=== PATIENT | female | born 1995 | race Caucasian/White ===

== ENCOUNTER 2021-02-05 12:08 | Emergency (ER) | payer OTHER, SELFPAY ==
[2021-02-05 12:22] VITALS: BP 133/73; PULSE 88; RESP 18; TEMP 36.4; O2SAT 100
[2021-02-05 12:23] VITALS: BP 133/73; PULSE 88; RESP 18; TEMP 36.4; O2SAT 100
--- NOTE | 2021-02-05 12:31 | ED.GENADULT ---
HPI - General Adult General Chief complaint: Skin/Abscess/Foreign Body Stated complaint: lip sore/rash/spot on neck Source: patient Mode of arrival: ambulatory Limitations: no limitations History of Present Illness HPI narrative: Patient is a 25-year-old female who presents to the [facility] via POV for evaluation of a skin problem. She states she has a long history of eczema located on upper lip and has ran out of her grandson on cream. She is requesting refills today. She also reports accidentally biting her lip which is now swollen. Additionally, she has a cyst on her neck that she would like removed. 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 Tylenol provides minimal relief. Nothing worsens symptoms. Triamcinolone cream controls eczema. Related Data Home Medications Medication Instructions Recorded Confirmed etonogestrel [Nexplanon] 1 implant SUBDERMAL ONCE 02/05/21 02/05/21 fluticasone propionate [Flonase] 1 spray INTRANASAL Q12H 02/05/21 02/05/21 ketotifen fumarate [Zaditor] 1 drp EACH EYE BID PRN 02/05/21 02/05/21 loratadine [Claritin] 10 mg PO PRN PRN 02/05/21 02/05/21 Allergies Allergy/AdvReac Type Severity Reaction Status Date / Time cucumber Allergy Dry Mouth Verified 02/05/21 12:31 latex Allergy Hives Verified 02/05/21 12:31 peanut Allergy Difficulty Verified 02/05/21 12:31 Swallowing tree nut Allergy Difficulty Verified 02/05/21 12:31 Breathing Review of Systems Review of Systems: Pertinent negatives fever, chills, sweats, malaise, poor p.o. intake, change in appetite, headache, LOC, dizziness, streaking, drainage, numbness, tingling, loss of sensation, foreign body sensation, deformity, sob, chest pain, and heart palpitations/murmurs. PMFSH Past Medical History Medical History (Updated 02/05/21 @ 12:43 by Rolando Selby, CARDIOVASCULAR TECHNOLOGIST, ) Eczema Comments I have reviewed and agree with the patient's past medical, surgical, social, and family hx as documented by the RN. There is no relevant family history pertinent to the presenting complaint. Exam Narrative: GENERAL: Well-appearing, well-nourished, and in no acute distress. HEAD: Normocephalic, atraumatic. No facial swelling appreciated. EYES: PERRLA and EOMI. No evidence of erythema, swelling, or drainage. ENT: Nares clear, no rhinorrhea or epistaxis.Mucous membranes moist and pink. Uvula is midline without erythema and swelling. No evidence of obstruction, petechial rash, cobblestoning, lesions, ulcers, erythema, swelling, exudates, peritonsillar abscess, tenting, or drooling. Breath odor and voice normal. NECK: Supple. No Lymphadenopathy or nuchal rigidity appreciated. CHEST: Bilateral lung alcocer are clear to auscultation. No respiratory distress. No evidence of cough or pleuritic cp upon examination. HEART: Regular rate and rhythm. No murmur, gallop, or rub heard. EXTREMITIES: Normal range of motion. No edema. SKIN: 0.5 small nodule consistent with cyst is appreciated to anterior neck. Small contusion noted to right side of inner lower lip. Moderate eczema noted to philtrum area. Skin is warm, dry. No evidence of cellulitis, abscess, streaking, induration, abrasions/lacerations, petechiae, drainage, or bleeding. NEURO: No focal deficits. Alert and oriented x3. SPECIAL OBSERVATIONS: Smiling. Laughing. No evidence of discomfort. C/O of of proportion to exam. Eating XXX. Running around. Tolerates food/fluids. Course Vital Signs Vital signs: Vital Signs Temperature 97.5 F L 02/05/21 12:22 Pulse Rate 88 02/05/21 12:22 Respiratory Rate 18 02/05/21 12:22 Blood Pressure 133/73 02/05/21 12:22 Pulse Oximetry 100 02/05/21 12:22 Temperature 97.5 F L 02/05/21 12:23 Pulse Rate 88 02/05/21 12:23 Respiratory Rate 18 02/05/21 12:23 Blood Pressure 133/73 02/05/21 12:23 Pulse Oximetry 100 02/05/21 12:23 Due to an elevated blood pressure, I had a detailed discussion with
== END 2021-02-05 12:50 | disposition home or self-care (01) ==
PROVIDERS: Emergency Provider Nurse Practitioner Family
DX: L72.9 Follicular cyst of the skin and subcutaneous tissue, unspecified (principal); L30.9 Dermatitis, unspecified
CPT/HCPCS: 99213; G0463